=== PATIENT | male | born 1960 | race Caucasian/White ===

== ENCOUNTER 2017-09-06 18:46 | Emergency (ER) | payer OTHER ==
[~2017-09-06] VITALS: Ht 188 cm; Wt 138.8 kg
[2017-09-06 18:55] VITALS: Ht 188 cm; Wt 138.8 kg
[2017-09-06 19:55] VITALS: BP 142/85
== END 2017-09-06 19:55 | disposition home or self-care (01) ==
LOC: ED 18:46
DX: I83.92 Asymptomatic varicose veins of left lower extremity (principal); I10 Essential (primary) hypertension

== ENCOUNTER 2019-05-25 05:17 | Emergency (ER) | payer MEDICAID ==
[~2019-05-25] VITALS: Ht 188 cm; Wt 142.0 kg
[2019-05-25 05:31] VITALS: Ht 188 cm; Wt 142.0 kg
[2019-05-25 06:50] LABS: BASOPHIL % 0.6 % (0-2); PLATELET COUNT 172 x10^3mcL (130-400); RED CELL DISTRIBUTION WIDTH 14.5 % (11.5-14.5)
[2019-05-25 07:03] LABS: CALCIUM 8.7 mg/dL (8.5-10.1); CARBON DIOXIDE 29.9 mmol/L (21-32); CHLORIDE SERUM 106 mmol/L (98-107); CREATININE SERUM 0.8 mg/dL (0.7-1.3); GFR1 > 60 mL/min; GLUCOSE SERUM 95 mg/dL (74-106); POTASSIUM SERUM 4.4 mmol/L (3.5-5.1); SODIUM SERUM 140 mmol/L (136-145)
[2019-05-25 07:14] LABS: ALBUMIN 3.6 g/dL (3.4-5.0); ALKALINE PHOSPHATASE 76 U/L (46-116); ALT/SGPT 35 U/L (16-63); AST/SGOT 21 U/L (15-37); BILIRUBIN TOTAL 0.3 mg/dL (0.20-1.00); CHOLESTEROL 167 mg/dL (<200); LIPASE 367 IU/L (73-393); T4(THYROXINE) 7.2 ug/dL (4.7-13.3); TOTAL PROTEIN, SERUM 7.1 g/dL (6.4-8.2)
[2019-05-25 07:19] LABS: HDL CHOLESTEROL 25 mg/dL (40-60)
[2019-05-25 08:29] LABS: microscopic required? NO
[2019-05-25 08:59] LABS: urine erythrocyte NEGATIVE (NEGATIVE)
[2019-05-25 09:11] LABS: AMPHETAMINE QUAL UR NONE DETECTED (See below)
[2019-05-25 09:20] VITALS: BP 145/83
== END 2019-05-25 09:20 | disposition left against medical advice (07) ==
LOC: ED 05:17
PROVIDERS: Emergency Medicine
DX: J98.01 Acute bronchospasm (principal); I10 Essential (primary) hypertension; E66.01 Morbid (severe) obesity due to excess calories; Z68.41 Body mass index [BMI] 40.0-44.9, adult
CPT/HCPCS: 36600; 83880; 87804; J2930; J7613; J7644; Q0092